=== PATIENT | female | born 1995 | race Hispanic/Latino ===

== ENCOUNTER 2024-08-26 11:49 | Emergency (ER) | payer SELFPAY ==
[~2024-08-26] VITALS: Ht 154.9 cm; Wt 54.4 kg
[2024-08-26 13:00] VITALS: PULSE 82; RESP 14; TEMP 98.2; O2SAT 100
== END 2024-08-26 13:20 | disposition home or self-care (01) ==
LOC: ER 13:12
DX: N75.0 Cyst of Bartholin's gland (principal)
CPT/HCPCS: 99283